=== PATIENT | male | born 1965 | race Caucasian/White ===

== ENCOUNTER 2017-08-07 21:28 | Emergency (ER) | payer OTHER ==
[~2017-08-07] VITALS: Ht 188 cm; Wt 84.5 kg
[2017-08-07 21:53] VITALS: BP 101/62; PULSE 88; RESP 18; O2SAT 97
--- NOTE | 2017-08-07 23:22 | ED.REPORT ---
HPI-Psychiatric Illness Date of Service Aug 07, 2017 ED Provider: Herbert Doll DO The pt is a 52 y/o male w/ a hx of type 1 diabetes presenting to the ED via law enforcement due to suicidal ideations. The pt had been drinking throughout the day. He describes being unsure of the events of yesterday and may have taken too much Insulin. The pt has bruising to the L eye and denies any facial pain. He is unaware of how he might have injured his face but notes he may have blacked out due to alcohol. The pt states that he is not suicidal currently and last attempted suicide years ago. Nursing Notes Stated Complaint: MENTAL HEALTH EVAL Chief Complaint: Suicidal ideations Nursing Notes Reviewed: Yes Allergies: Coded Allergies: No Known Allergies (Unverified , 08/07/17) General Time Seen by MD: 23:21 Chief Complaint Suicidal ideation Hx Obtained From: Patient Arrived By: Police Onset Occurred: Just prior to arrival Symptom Duration: Since onset Recent Healthcare: No recent hospitalization, Recent doctor visit Similar Sx Previous: Yes Risk-Psychiatric Illness Suicide Risk Stratification Suicide Risk Factors - Adult: : Previous attempt: Substance abuse RF Statements: Risk factors reviewed Past Medical History Past Medical History Type 1 diabetes Past Surgical History None reported Smoking History Unknown if Ever Smoker Social History Alcohol Use: 3-5 per day Other Social History: Lives in rehab facility Ambulatory Status Independent Review of Systems Denies facial pain; Skin: Reports Bruising (L eye ) Psychiatric: Reports: Suicidal ideation (but denies currently; ) Complete sys rev & neg: except as marked. Physical Exam Initial Vital Signs Vital Signs (First) Date Time Temp Pulse Resp B/P Pulse Ox O2 Delivery O2 Flow Rate FiO2 08/07/17 21:53 36.4 88 18 101/62 97 Room Air Initial VS: Reviewed ENT: Mucous membranes moist, Conjunctiva normal, No scleral icterus Neck: Supple, Non-tender, Full range of motion Respiratory: Breath sounds normal, Clear to auscultation, No respiratory distress Cardiovascular: Regular rate & rhythm, Heart sounds normal, Intact distal pulses Extremities: Vascular intact, Neuro intact, No swelling, No tenderness Skin: Warm, Dry, No cyanosis General/Constitutional: Awake, Alert Smells of alcohol; Neurologic: Oriented X3, Speech NL Psychiatric: Affect NL, Mood NL Head / Eyes: Normocephalic, EOMI No facial tenderness to palpation; [place] eye and swelling on L side; No bony stepoffs; Interpretation & Diagnostics CT maxillofacial Impression: No CT evidence of fx. This report was transmitted to the emergency room at 08/08/17 1:55:33 AM PDT. Lab Results Interpretation Result Diagram: 08/07/17 2337 08/07/17 2337 Test 08/07/17 23:37 08/07/17 23:58 White Blood Count 10.7th/mm3 (3.8-10.1) Red Blood Count 4.59mil/mm3 (4.40-5.80) Hemoglobin 13.0g/dL (13.8-17.2) Hematocrit 37.4% (41.0-50.0) Mean Corpuscular Volume 81.5fL (81-100) Mean Corpuscular Hemoglobin 28.3pg (27.0-35.0) Mean Corpuscular Hemoglobin Concent 34.8% (32.0-37.0) Red Cell Distribution Width 13.5% (12.3-15.4) Platelet Count 226bil/L (150-400) Neutrophils (%) (Auto) 82.1% (40-74) Lymphocytes (%) (Auto) 12.9% (14-46) Monocytes (%) (Auto) 4.2% (4-12) Eosinophils (%) (Auto) 0.5% (0-5) Basophils (%) (Auto) 0.2% (0-3) Sodium Level 141mEq/L (134-144) Potassium Level 4.4mEq/L (3.5-5.2) Chloride Level 104mEq/L (97-108) Carbon Dioxide Level 19mmol/L (18-29) Blood Urea Nitrogen 16mg/dL (6-24) Creatinine 0.71mg/dL (0.76-1.27) Estimat Glomerular Filtration Rate 124mL/min (>59) Glucose Level 40mg/dL (60-99) Calcium Level 9.1mg/dL (8.5-10.1) Total Bilirubin 0.2mg/dL (0.0-1.2) Aspartate Amino Transf (AST/SGOT) 35U/L (0-50) Alanine Aminotransferase (ALT/SGPT) 23U/L (0-44) Alkaline Phosphatase 42U/L (25-150) Total Protein 7.3g/dL (6.4-8.4) Albumin 4.4g/dL (3.4-5.0) Thyroid Stimulating Hormone (TSH) 0.536uIU/mL (0.450-4.500) Alcohols 238mg/dL (0-10) Urine Color Straw (YELLOW) Urine Appearance Clear (CLEAR,HAZY) Urine pH 5.5 (5.0-8.0) Urine Specific [place] 1.008 (1.003-1.035) Urine Protein Negativemg/dL (NEG,TRACE) Urine Glucose (UA) Negativemg/dL (NEGATIVE) Urine Ketones Negativemg/dL (NEGATIVE) Urine Occult Blood Negative (NEGATIVE) Urine Nitrite Negative (NEGATIVE) Urine Bilirubin Negative (NEGATIVE) Urine Urobilinogen Normalmg/dL (NORMAL) Urine Leukocyte Esterase Negative (NEGATIVE) Urine RBC 0-2/hpf (0-2) Urine WBC 0-5/hpf (0-5) Urine Epithelial Cells Occasional/hpf (NONE-MOD) Urine Crystals None seen (NONE SEEN) Urine Bacteria Few/hpf (NONE-FEW) Urine Hyaline Casts None/lpf (NONE) Urine Granular Casts Rare (NONE SEEN) Urine Waxy Casts None seen (NONE SEEN) Urine Red Blood Cell Casts None seen (NONE SEEN) Urine White Blood Cell Casts None seen (NONE SEEN) Urine Mucus Present (None Seen) Urine Trichomonas None seen (NONE SEEN) Urine Yeast None (NONE SEEN) Urinalysis Comment None Urine Culture Reflexed Not indicated CT Head Interpretation Impression: No CT evidence of hemorrhage, mass, or acute infarct. This report was transmitted to the emergency room at 08/08/17 0 1:49:20 AM PDT. Study: Head CT no contrast Interpretation / Wet Read by: Interpret - Radiologist Re-Eval/Medical Decision Med Decision/Clinical Course 52-year-old male with a history of suicidal ideation presents intoxicated with police with concerns for suicidal ideation. On my evaluation here, the patient states he is not suicidal. He is out of his insulin, and is unsure if he might have taken extra, however he notes that he did not intentionally take too much insulin. He was hypoglycemic with a glucose of 40 on his labs and after eating some food his sugars remained in the 50s. He was treated with 1 amp of D50 and sugars improved to 1:30. He received his home dose of Humalog and was discharged with a new prescription for his medication until he can be seen by his PCP. He slept in the emergency room until his alcohol level returned to legal limits. He had some facial bruising and injury that he was unaware of, and scans today do not show significant injury. Re-Evaluation/Progress : Time of Eval: 03:20 Re-Evaluation/Progress Note: Pt rechecked. Informed pt of plan for treatment. Pt understands and agrees with plan for treatment. F/U instructions and RTER warnings given. All questions addressed. Counseled Regarding: Diagnosis, Lab results, Need for follow-up, When/why to return to ED Discharge & Departure Impression: Primary Impression: Hypoglycemia Additional Impressions: Alcohol intoxication Complication of substance-induced condition: uncomplicated Qualified Code: F10.120 - Alcohol abuse with intoxication, uncomplicated Head injury Encounter type: initial encounter Qualified Code: S09.90XA - Unspecified injury of head, initial encounter Disposition: Home Discharge Condition All VS Reviewed: Yes Condition: Stable Additional Instructions: Thank for you entrusting us with your care today. Your imaging results all appeared normal. I wrote you a prescription for more Insulin which you may olive picker at your next earliest convenience. Please return to the emergency department if you experience any new or worsening symptoms. I hope you feel better soon. Referrals: [facility] Scribe Attestation Portions of this note were transcribed by Nilton Nickerson. I, Dr. Doll personally performed the history, physical exam and medical decision-making; I reviewed and confirmed the accuracy of the information in the transcribed note. copies to: [facility] Herbert Doll DO Aug 07, 2017 23:22 Nilton Nickerson Aug 08, 2017 03:05
[2017-08-07 23:47] LABS: BASOPHILS % (AUTO) 0.2 % (0-3); EOSINOPHILS % (AUTO) 0.5 % (0-5); MONOCYTES % (AUTO) 4.2 % (4-12); Mean Corpuscular Hemoglobin 28.3 pg (27.0-35.0); Mean Corpuscular Volume 81.5 fL (81-100); NEUTROPHILS % (AUTO) 82.1 % (40-74); Platelet Count 226 bil/L (150-400)
[2017-08-08] MEDS ORDERED: Dextrose 10% 250 ML IV ONE (00:22)
[2017-08-08 00:24] LABS: APPEARANCE,URINE CLEAR (CLEAR,HAZY); COLOR,URINE STRAW (YELLOW); OCCULT BLOOD,URINE NEGATIVE (NEGATIVE); PH,URINE 5.5 (5.0-8.0); UROBILINOGEN,URINE NORMAL (NORMAL)
[2017-08-08] MEDS ORDERED: Insulin LISPRO 300 Unit/3 mL Inj SUBQ ONE (06:40)
--- NOTE | 2017-08-08 08:09 | DRSVH ---
PROCEDURE: CT BRAIN WITHOUT CONTRAST ([id number]) INDICATIONS: FACE TRAUMA, SYNCOPE, +ETOH TECHNIQUE: Noncontrast 4.5 mm thick angled axial sections acquired from the foramen magnum to the vertex, with c oronal reformats. COMPARISON: None. FINDINGS: Image quality: Excellent. CSF spaces: Basal cisterns are patent. No extra-axial fluid collections. Ventricles are normal in size and shape. Brain: No midline shift. No intracranial masses or hemorrhage. Aleman-white matter interface is norm al. Skull and face: Calvarium and visualized facial bones are intact, without suspicious lesions. Sinuses: Visualized sinuses and mastoids are clear. IMPRESSION: No acute process. Concordant with preliminary interpretation. Dictated by: José Gibbons M.D. on 08/08/2017 at 8:07 Approved by: José Gibbons M.D. on 08/08/2017 at 8:07
--- NOTE | 2017-08-08 08:10 | DRSVH ---
PROCEDURE: CT FACE WITHOUT CONTRAST ([id number]) INDICATIONS: FACE TRAUMA, SYNCOPE, +ETOH TECHNIQUE: Noncontrast 1.5 mm thick axial images acquired from the mandible through the frontal sinuses, with co valdo and sagittal reformatting. For radiation dose reduction, the following was used: automated ex posure control. COMPARISON: None. FINDINGS: Image quality: Excellent. Bones and teeth: Orbital peralta are intact. Sinus peralta show no fracture or deformity. Nasal bones and septum are intact. Visualized portions of the mandible demonstrate no fractures or subluxation. Zygomatic arches are intact. Pterygoid plates are intact. Visualized portions of the skull base an d auditory canals are intact. Sinuses: Paranasal sinuses are aerated, without fluid levels, mucosal thickening, or mucoceles. [place] air cells are aerated. Soft tissues: No edema, masses, or fluid collections. No enlarged lymph nodes. No soft tissue lace rations or debris. Vascular: Visualized vascular structures appear normal in the absence of contrast. Bony vascular fo ramina and canals are intact. IMPRESSION: No fracture. Concordant with preliminary interpretation. Dictated by: José Gibbons M.D. on 08/08/2017 at 8:07 Approved by: José Gibbons M.D. on 08/08/2017 at 8:09
== END 2017-08-08 07:31 | disposition home or self-care (01) ==
LOC: SED 21:28
DX: S09.8XXA Other specified injuries of head, initial encounter (principal); E10.649 Type 1 diabetes mellitus with hypoglycemia without coma; F10.120 Alcohol abuse with intoxication, uncomplicated; X58.XXXA Exposure to other specified factors, initial encounter; Y93.89 Activity, other specified; Y92.410 Unspecified street and highway as the place of occurrence of the external cause; Y99.8 Other external cause status; Z79.4 Long term (current) use of insulin
CPT/HCPCS: 36415; 70450; 70486; 80053; 81000; 82075; 82948; 84443; 85025; 99284; G0480; J1815